=== PATIENT | male | born 1965 ===

== ENCOUNTER 2017-10-01 08:17 | Outpatient (CLI) | payer BC | END 2017-10-01 08:18 | disposition home or self-care (01) | LOC: BICULT 08:17 | PROVIDERS: ATTEND Internal Medicine Gastroenterology | DX: Z12.11 Encounter for screening for malignant neoplasm of colon (principal); K21.9 Gastro-esophageal reflux disease without esophagitis; R14.0 Abdominal distension (gaseous); R94.5 Abnormal results of liver function studies; R74.8 Abnormal levels of other serum enzymes | CPT/HCPCS: 76705 ==